=== PATIENT | female | born 1945 | race Caucasian/White ===

== ENCOUNTER 2021-05-10 10:07 | Emergency (ER) | payer MEDICARE, SELFPAY ==
[2021-05-10 10:38] VITALS: BP 118/59; PULSE 77; RESP 18; TEMP 36.7; O2SAT 97
--- NOTE | 2021-05-10 11:01 | ED.URI ---
HPI - URI/Sore Throat General Chief Complaint: Upper Respiratory Infection Stated Complaint: Cough Source: patient and RN notes reviewed Mode of arrival: ambulatory History of Present Illness HPI Narrative: This is a 76-year-old female who presented to urgent care with complaints of coughing. According to patient she developed a cough a couple days ago her is also here for worsening cough and congestion and shortness of breath both will be tested for Covid. The patient denies SOB, CP, palpitation, extremity numbness, lightheadedness, dizziness, constipation, diarrhea, chills, or fever. She has no other associated symptoms Covid negative Related Data Home Medications Medication Instructions Recorded Confirmed alendronate 70 mg PO WEEKLY 05/10/21 05/10/21 donepezil 10 mg PO DAILY 05/10/21 05/10/21 fluoxetine 10 mg PO DAILY 05/10/21 05/10/21 trazodone 50 mg PO DAILY 05/10/21 05/10/21 Allergies Allergy/AdvReac Type Severity Reaction Status Date / Time Anesthetics - Tori Type- Allergy Unknown Unknown Verified 05/10/21 10:49 Parabens Review of Systems Review of Systems: A 14 organ system Review of Systems was performed and pertinent positives included in the HPI, otherwise remaining ROS is negative. [facility] Family History Family History (Updated 05/10/21 @ 11:05 by URI Greene) Other Family history non-contributory Exam Narrative: GENERAL: This is a well-nourished, well-developed patient, in no apparent distress. HEAD: normocephalic, atraumatic. EYES: PERRL. Sclera clear/white. Vision is grossly intact. EARS: External ears normal, auditory canals clear and without drainage, TMs normal without perforation. Hearing grossly intact. NOSE: External nose normal with no obvious nasal discharge, nares without redness, no rhinorrhea. THROAT: Mucous membranes moist, posterior pharynx clear. NECK: Neck supple, non-tender without lymphadenopathy, masses or thyromegaly. CARDIOVASCULAR: Regular rate and rhythm without murmurs, gallops, or rubs. RESPIRATORY: Clear to auscultation. Breath sounds equal bilaterally. No wheezes, rales, or rhonchi. GASTROINTESTINAL: Abdomen soft, non-tender, nondistended. Bowel sounds are active. No hepato-splenomegaly, or palpable masses. No guarding. SKIN: warm, intact with no suspicious lesions or rash, good texture and turgor. NEURO: awake, alert, and oriented to person, place and time. There were no obvious focal neurologic abnormalities. Steady gait EXTREMITIES: Normal range of motion. No edema. No calf tenderness. Negative Homans sign bilaterally. BACK: Nontender without deformity or crepitance. No flank tenderness. Course Course Emergency Course: Patient will be given Tessalon Perles Vital Signs Vital signs: Vital Signs Temperature 98.1 F 05/10/21 10:38 Pulse Rate 77 05/10/21 10:38 Respiratory Rate 18 05/10/21 10:38 Blood Pressure 118/59 L 05/10/21 10:38 Pulse Oximetry 97 05/10/21 10:38 Temperature 98.1 F 05/10/21 10:38 Pulse Rate 77 05/10/21 10:38 Respiratory Rate 18 05/10/21 10:38 Blood Pressure 118/59 L 05/10/21 10:38 Pulse Oximetry 97 05/10/21 10:38 MDM - URI/Sore Throat Differential Diagnosis Differential diagnosis: Likely upper respiratory infection, viral infection and other (Common cold) Discharge Plan Discharge Clinical Impression: Common cold Patient Disposition: Home, Self-Care Condition: Stable Instructions: Antibiotic Form, Cold Symptoms (ED) Additional Instructions: Follow up with primary care physician 1-2 take all medication as tolerate When should I call the doctor or nurse? ? Most people who have a cold do not need to see the doctor or nurse. But you should call your doctor or nurse if you have: ?A fever of more than 100.4? F (38? C) that comes with shaking chills, loss of appetite, or trouble breathing ?A fever and also have lung disease, such as emphysema or asthma ?A cough that last
== END 2021-05-10 11:11 | disposition home or self-care (01) ==
PROVIDERS: Emergency Provider Nurse Practitioner; PCP Internal Medicine Geriatric Medicine
DX: J00 Acute nasopharyngitis [common cold] (principal); Z20.822 Contact with and (suspected) exposure to COVID-19
CPT/HCPCS: 87426; 99213; C9803; G0463

== ENCOUNTER 2022-12-08 14:47 | Observation (INO) | payer MEDICARE, SELFPAY ==
--- NOTE | ~2022-12-08 | CT_ITS ---
EXAMINATION: CT brain wo con DATE: 12/08/2022 16:39 INDICATION: Vertigo TECHNIQUE: Computed tomography (CT) of the head was performed without intravenous contrast. Sagittal and coronal reconstructions were performed. The mA was adjusted according to patient size. Iterative reconstruction technique was employed. The dose-length product was 605.33 mGy-cm. COMPARISON: None FINDINGS: No acute intracranial hemorrhage, acute infarction or abnormal extra axial fluid collection. There is mild scattered white matter hypoattenuation consistent with chronic small vessel ischemic disease. S ymmetric prominence of the sulci and ventricles consistent with mild to moderate age-appropriate diff use cerebral volume loss. Ventricles are normal and symmetric. No mass/mass effect. Changes of bilate ral intraocular lens replacement. The orbits, paranasal sinuses and mastoid air cells are normal. IMPRESSION: 1. No acute intracranial process. 2. Age-related changes including mild to moderate diffuse volume loss and mild scattered white matter hypoattenuation consistent with chronic small vessel ischemic disease. Reviewed, dictated and finalized at location A. IMPRESSION: 1. No acute intracranial process. 2. Age-related changes including mild to moderate diffuse volume loss and mild scattered white matter hypoattenuation consistent with chronic small vessel isc hemic disease.
--- NOTE | ~2022-12-08 | XR_ITS ---
EXAMINATION: XR chest 1V portable DATE: 12/08/2022 16:00 INDICATION: Vertigo TECHNIQUE: frontal view of the chest was obtained. COMPARISON: None FINDINGS: Mild streaky bibasilar atelectasis. No other airspace opacities, pulmonary edema, pleural effusion or pneumothorax. The cardiomediastinal silhouette is normal. Patient is rotated slightly towards the wv ght. IMPRESSION: 1. Mild streaky bibasilar atelectasis. Reviewed, dictated and finalized at location A.
[2022-12-08 14:57] VITALS: BP 144/60; PULSE 69; RESP 20; TEMP 36.3; O2SAT 99
[2022-12-08 14:58] VITALS: BP 144/60; PULSE 69; RESP 24; O2SAT 100
--- NOTE | 2022-12-08 15:10 | ED.DIZZY ---
HPI - Dizziness General Chief Complaint: Dizziness Stated Complaint: vertigo Time Seen by Provider: 12/08/22 15:06 Source: patient and family Limitations: no limitations History of Present Illness HPI Narrative: Patient 77 years old white female came to the emergency room with vertigo-like symptoms including everything spins, nausea and vomiting started immediately while reaching above her head to put something away in the cabinet. History of similar symptoms secondary to vertigo, patient denies any different than between the symptoms and the previous ones. Patient does not take any medicine at home for vertigo at this time. She denies any fever, chills, chest pain, shortness of breath, headache or focal neurodeficit Related Data Home Medications Medication Instructions Recorded Confirmed alendronate 70 mg tablet 70 mg PO WEEKLY 05/10/21 05/10/21 donepezil 10 mg tablet 10 mg PO DAILY 05/10/21 05/10/21 fluoxetine 10 mg capsule 10 mg PO DAILY 05/10/21 05/10/21 trazodone 50 mg tablet 50 mg PO DAILY 05/10/21 05/10/21 Allergies Allergy/AdvReac Type Severity Reaction Status Date / Time Anesthetics - Tori Type- Allergy Unknown Unknown Verified 05/10/21 10:49 Parabens Review of Systems Review of Systems: All systems reviewed & are unremarkable except as noted in HPI and below PMFSH Family History Family History Other Family history non-contributory Exam Narrative: General appearance: Well-developed, well-nourished Skin: Normal color Head: Normocephalic, nontraumatic Eyes: Clear conjunctiva ENT: Oropharynx normal, ears normal, nose normal Neck: Supple, nontender Chest and respiratory: Airway patent, no respiratory distress, no accessory muscle use Heart: Regular rate/rhythm Abdomen: Soft, nontender, no organomegaly, quiet bowel sounds Vascular: Normal peripheral pulses, normal capillary refill. Musculoskeletal: Normal range of motion, nontender back Neurologic: Alert and oriented ?3, [employer] is normal as tested, no gross motor deficit Course Reevaluation(s) Reevaluation #1: Patient still not feeling well, does not want to go home would like to stay in the hospital overnight to make sure she does not get a fall at home. Family member at the bedside Date: 12/08/22 Time: 18:26 Vital Signs Vital signs: Vital Signs Temperature 36.3 C L 12/08/22 14:57 Pulse Rate 69 12/08/22 14:57 Respiratory Rate 20 12/08/22 14:57 Blood Pressure 144/60 H 12/08/22 14:57 Pulse Oximetry 99 12/08/22 14:57 Oxygen Delivery Room Air 12/08/22 14:57 Temperature 36.3 C L 12/08/22 14:57 Pulse Rate 71 12/08/22 15:46 Respiratory Rate 17 12/08/22 15:46 Blood Pressure 110/48 L 12/08/22 15:46 Pulse Oximetry 100 12/08/22 14:58 Oxygen Delivery Room Air 12/08/22 14:57 MDM - Dizziness MDM Narrative Medical decision making narrative: Patient 77 years old white female presented to the ED with benign positional vertigo like symptoms. Patient had similar symptoms in the past, does not have medication at home. Physical examination was consistent with vertigo symptoms, Differential diagnosis benign positional vertigo, vertebrobasilar insufficiency , electrolyte imbalance,. Work-up today showed normal blood work-up which included CBC, CMP, CT scan of the head and chest x-ray showed no acute abnormality. Patient received 1 mg of Ativan, 25 mg of Antivert, 8 mg of Zofran, with improvement but patient does not feel well yet and concerned about going home and falling. Patient's family at the bedside, requested observation 24. Differential Diagnosis Differential diagnosis: Likel
--- NOTE | 2022-12-08 15:11 | ECG_ITS ---
Measurements Intervals [place] Rate: 64 P: 56 [place]: 178 QRS: 10 QRSD: 116 T: 38 QT: 435 QTc: 451 Interpretive Statements SINUS RHYTHM INCOMPLETE RIGHT BUNDLE BRANCH BLOCK BORDERLINE T WAVE ABNORMALITY- ANTERIOR LEADS BORDERLINE ECG NO PREVIOUS ECG AVAILABLE FOR COMPARISON Electronically Signed On 12-08-2022 16:49:10 CDT by Sean Kunz D.O.
[2022-12-08] MEDS: MECLIZINE HCL 25 MG TABLET PO (15:31)
[2022-12-08] MEDS: diazePAM INJ (*CRX) 10 MG/2 ML SYRINGE 5 MG IV PUSH (15:31)
[2022-12-08] MEDS: ONDANSETRON INJ 4 MG/2 ML VIAL IV PUSH ×2 (15:31→16:27)
[2022-12-08 15:33] LABS: Basophils Percent Auto 0.5 % (0.2-1.2); Eosinophils Absolute Auto 0.1 K/mm3 (0-0.3); Eosinophils Percent Auto 0.8 % (0-4.4); Hematocrit 42.4 % (37.0-47.0); Hemoglobin 14.2 g/dL (12.0-15.0); Immature Granulocyte Absolute 0.05 K/mm3 (0.00-0.031); Immature Granulocyte Percent A 0.6 % (0-0.5); Lymphocytes Absolute Auto 1.27 K/mm3 (0.9-3.2); Lymphocytes Percent Auto 14.7 % (18.3-44.2); Mean Corpuscular HGB Conc 33.5 g/dl (32-36); Mean Corpuscular Hemoglobin 31.3 pg (26-34); Mean Corpuscular Volume 93.4 fl (80-100); Mean Platelet Volume 9.1 fl (7.4-10.4); Monocytes Absolute Auto 0.4 K/mm3 (0.1-0.6); Monocytes Percent Auto 4.3 % (2.6-8.5); Neutrophils Absolute Auto 6.8 K/mm3 (1.3-6.7); Neutrophils Percent Auto 79.1 % (45.5-73.1); Platelet Count Result 239 k/mm3 (150-375); Red Blood Count 4.54 M/mm3 (4.2-5.4); Red Cell Distribution Width 12.5 % (11.5-14.5); White Blood Count 8.6 K/mm3 (4.5-10.0)
[2022-12-08 15:46] VITALS: BP 110/48; PULSE 71; RESP 17
[2022-12-08 16:34] LABS: Alanine Aminotransferase 18 U/L (6-35); Albumin Level 4.2 g/dL (3.5-5.1); Alkaline Phosphatase 136 U/L (38-126); Anion Gap 5 mmol/L (8-16); Aspartate Amino Transferase 34 U/L (14-36); Bilirubin,Total 0.5 mg/dL (0.2-1.3); Blood Urea Nitrogen 13 mg/dL (7-17); Carbon Dioxide 30 mmol/L (22-30); Chloride 106 mmol/L (98-107); Estimated CRCL calculation 56 ml/min; Estimated Glomerular Filt Rate > 60; Glucose 124 mg/dL (65-110); Potassium 3.7 mmol/L (3.4-5.0); Sodium 141 mmol/L (137-145)
[2022-12-08 16:45] LABS: Troponin I < 0.012 ng/mL (0.000-0.034)
[2022-12-08 17:16] VITALS: BP 124/48; PULSE 68; O2SAT 87
[2022-12-08 18:31] VITALS: BP 124/49; PULSE 69; RESP 16; O2SAT 93
--- NOTE | 2022-12-08 23:22 | P.PNCROSS_ITS ---
Event Note Event Note Event Note: the patient was seen and evaluated by ER physician. I was notified that the p gabriel was going to sign out from ER. The patient signed out AMA. I did not even see the patient to physically assessed her ask any questions on the history and physical. According to the nurses the patient stated that she was feeling better and decided to go home. She signed out against medical advice.
== END 2022-12-08 19:40 | disposition left against medical advice (07) ==
LOC: ANHED 18:42 → ANH3MED 19:10
PROVIDERS: Admitting Provider Internal Medicine; Emergency Provider Emergency Medicine; PCP Internal Medicine Geriatric Medicine; Visit Provider Internal Medicine
DX: R42 Dizziness and giddiness (principal); Z53.21 Procedure and treatment not carried out due to patient leaving prior to being seen by health care provider; J98.11 Atelectasis; R90.82 White matter disease, unspecified; I45.10 Unspecified right bundle-branch block; Z79.899 Other long term (current) drug therapy; Z53.29 Procedure and treatment not carried out because of patient's decision for other reasons
CPT/HCPCS: 36415; 70450; 71045; 80053; 84484; 85025; 93005; 96374; 96375; 96376; 99285; A9270; G0378; J2405; J3360